=== PATIENT | male | born 2005 | race Caucasian/White ===

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

== ENCOUNTER 2024-03-10 23:25 | Emergency (ER) | payer BC, OTHER ==
[~2024-03-10] VITALS: Ht 182.8 cm; Wt 61.2 kg
[~2024-03-10 23:25] MED LIST changes: +TAMIFLU 75MG CA75 MG PO
== END 2024-03-11 01:53 | disposition home or self-care (01) ==
LOC: ED 23:25
DX: S02.2XXA Fracture of nasal bones, initial encounter for closed fracture (principal); R42 Dizziness and giddiness; Y04.2XXA Assault by strike against or bumped into by another person, initial encounter; Y93.89 Activity, other specified; Y92.89 Other specified places as the place of occurrence of the external cause; Y99.8 Other external cause status

== ENCOUNTER 2025-05-16 22:39 | Emergency (ER) | payer BC, OTHER ==
[~2025-05-16] VITALS: Ht 182.8 cm; Wt 56.7 kg
== END 2025-05-17 00:42 | disposition home or self-care (01) ==
LOC: ED 22:39
DX: S69.91XA Unspecified injury of right wrist, hand and finger(s), initial encounter (principal); R45.4 Irritability and anger; W22.09XA Striking against other stationary object, initial encounter; Y93.89 Activity, other specified; Y92.89 Other specified places as the place of occurrence of the external cause; Y99.8 Other external cause status

== ENCOUNTER 2025-06-30 14:19 | Emergency (ER) | payer BC, OTHER ==
[~2025-06-30] VITALS: Wt 59.0 kg
[2025-06-30] MEDS ORDERED: DERMABOND 1 EA APPL T ONE ×2 (15:27→15:33)
== END 2025-06-30 15:22 | disposition home or self-care (01) ==
LOC: ED 14:19
DX: S01.81XA Laceration without foreign body of other part of head, initial encounter (principal); W22.8XXA Striking against or struck by other objects, initial encounter; Y93.89 Activity, other specified; Y92.89 Other specified places as the place of occurrence of the external cause; Y99.8 Other external cause status